=== PATIENT | male | born 1945 | race Caucasian/White ===

== ENCOUNTER 2016-09-02 12:42 | Inpatient (IN) | payer MEDICARE, SELFPAY ==
[~2016-09-02 12:42] MED LIST: ACETAMINOPHEN325 M2 PO; ACTOS15 MG PO; ADULT ASPIRIN81 MG PO; ALDACTONE25 M1 PO; ALDACTONE25 MG PO; ALLOPURINOL300 M1 PO; ALLOPURINOL300 MG PO; ALPHA LIPOIC A200 M1 PO; ALPHA-LIPOIC AC50 MG; ALPRAZOLAM ER0.5 M1 PO; AMLODIPINE BESYL5 MG PO; AMOXICILLIN500 M PO; APRESOLINE10 MG/TA1 PO; ASPIR-TRIN325 M2 PO; ASPIR-TRIN325 MG PO; ASPIRIN81 M1 PO; ATIVAN1 MG PO; AUGMENTIN 500-1 EAC2 PO; AUGMENTIN 875-1 EAC2 PO; AVALIDE 150-12.1 TAB PO; AVAPRO150 MG PO; AVAPRO75 MG PO; BACTRIM DS TABL1 TAB PO; CARVEDILOL25 M1 PO; CIPRO500 MG PO; CPAP; CYMBALTA60 M1 PO; DOXYCYCLINE HY100 M3 PO; DULERA 200 MCG/13 G1 INH; DULERA 200 MCG/13 GM IH; DYAZIDE 37.5/251 CAP; DYAZIDE 37.5/251 CAP PO; EC ASPIRIN325 MG PO; ELIQUIS2.5 M1 PO; ESOMEPRAZOLE MA40 MG PO; FERROUS SULFAT325 MG PO; FISH OIL 1,0001 CA1 PO; FLOMAX0.4 M1 PO; FLOMAX0.4 MG PO; FOSFOMYCIN PO; GLUCAGON; GLYBURIDE MICRON6 MG PO; GLYCRON6 MG PO; H PO; HUMALOG KW200 UNIT/1 SC; HUMALOG MIX 75/10 ML; HUMALOG100 U/ML SQ; HUMALOG100 UNIT/2 SC; HUMALOG100 UNITS/ SC; HUMULIN 70/30 V10 ML SQ; HUMULIN N100 U/ML; HYDRALAZINE HCL25 M1 PO; HYDRALAZINE HCL50 M1 PO; HYDROCHLOROTH12.5 M1 PO; HYDROCODON-ACE1 EA16 PO; IMDUR PO; IMDUR30 MG PO; ISORDIL20 MG PO; KEFLEX500 M4 PO; LASIX; LASIX40 MG PO; LASIX80 MG PO; LEVAQUIN250 M3 PO; LEVEMIR100 UNITS/ SC; LEVOTHROID50 MCG PO; LEVOTHROID75 MCG PO; LEVOTHYROXINE100 MC1 PO; LIPITOR10 M1 PO; LIPITOR10 MG PO; LOVENOX120 MG/0.1 SC; MAXZIDE 75/50 T1 TAB PO; METOLAZONE2.5 M1 PO; METOLAZONE5 MG PO; METOPROLOL SUC200 M1 PO; MIRALAX17 G2 PO; MOTION SICKNESS PO; MUCINEX1200 MG PO; MYSOLINE50 M1 PO; NADOLOL80 MG PO; NEXIUM20 M1 PO; NEXIUM40 M1 PO; NEXIUM40 MG PO; NITROGLYCERIN0.4 M1 PO; NITROSTAT0.4 MG/TAB SL; NORCO 5/325 TAB1 TAB PO; NORVASC5 MG PO; NOVOLIN 70100 UNITS/ SC; NOVOLIN N100 UNIT/2 SQ; NYSTATIN100000 UNI SSP; OXYCODONE/APAP PO; PERCOCET 5/3251 TAB PO; PLAVIX75 M1 PO; POTASSIUM CHLO10 MEQ PO; POTASSIUM CHLO20 ME3 PO; PROTONIX40 M2 PO; PROVENTIL HFA6.7 G1 INH; SKELAXIN800 M1 PO; SLOW-MAG64 MG PO; SPIRONOLACTONE25 M2 PO; STEROID INH; STOP HOME MEDICATION; SULFAMYLON60 GM TOP; TOPROL XL200 MG PO; TORSEMIDE100 M1 PO; VENTOLIN HFA18 G2 PO; XANAX0.25 MG PO; XANAX0.5 M1 PO; XANAX0.5 MG PO; ZAROXOLYN PO; ZITHROMAX250MG Z-PAK PO
[2016-09-02] MEDS ORDERED: PAIN & FEVER325 M1 PO (12:58)
[2016-09-02] MEDS ORDERED: ASPIRIN EC81 MG PO (13:08)
[2016-09-02] MEDS ORDERED: CYMBALTA30 M1 PO (13:12)
[2016-09-02] MEDS ORDERED: NEXIUM40 M1 PO (13:12)
[2016-09-02 13:17] LABS: BASO % 0.1 % (0-2); EOS % 0.1 % (0-7); HCT-HEMATOCRIT 35.7 % (36.0-53.5); HGB-HEMOGLOBIN 11.2 gm/dl (13.5-17.0); IMMATURE GRANULOCYTES ABSOLUTE 0.04 tho/cmm (0-0.03); IMMATURE GRANULOCYTES PERCENT 0.4 % (0-0.3); LYMPH % 6.5 % (20-45); LYMPH ABSOLUTE COUNT 0.7 tho/cmm (0.8-4.5); MCH (MEAN CORPUSCULAR HGB) 30.4 pg (28.0-32.0); MCHC MEAN CORPUSCULAR HGB CONC 31.4 % (32.0-36.0); MCV (MEAN CELL VOLUME) 96.7 fl (82.0-96.0); MEAN PLATELET VOLUME 10.7 cmc (9.4-12.4); MONO % 3.9 % (0-12); MONOCYTE ABSOLUTE COUNT 0.4 tho/cmm (0.0-1.2); NEUTROPHIL ABSOLUTE COUNT 9.4 tho/cmm (1.6-8.0); NEUTROPHIL-AUTOMATED 9.4 tho/cmm (1.6-8.0); PLATELET COUNT 158 tho/cmm (150-450); RED BLOOD COUNT 3.69 mil/cmm (4.40-5.70); RED CELL DISTRIBUTION WIDTH 16.4 % (12.4-16.4); WHITE BLOOD COUNT 10.6 tho/cmm (4.0-10.0)
[2016-09-02] MEDS ORDERED: HUMALOG100 UNIT/2 SC (13:19)
[2016-09-02] MEDS ORDERED: POTASSIUM CHLO20 ME3 PO (13:22)
[2016-09-02] MEDS ORDERED: AZITHROMYCIN250 M1 PO (13:25)
[2016-09-02] MEDS ORDERED: IPRAT-ALBUT 0.5-3 ML NEB ×2 (13:26→15:01)
[2016-09-02 13:29] LABS: ANION GAP 11 mmol/L (0-20); BLOOD UREA NITROGEN 71 mg/dl (6-24); CALCIUM 8.2 mg/dl (8.5-10.5); CARBON DIOXIDE-VENOUS 28 mmol/L (22-32); CHLORIDE 107 mmol/l (96-110); GLUCOSE 279 mg/dL (70-110); POTASSIUM 4.6 mmol/L (3.7-5.1); SODIUM 141 mmol/L (135-145); eGFR VALUE FOR BLACK 46 mL/Min
[2016-09-02] MEDS ORDERED: SILVADENE20 G1 TOP (14:57)
[2016-09-02] MEDS ORDERED: DEMADEX20 M1 PO (15:36)
[2016-09-02 22:08] LABS: ALB/GLOB RATIO 0.6 (0.8-2.0); ALBUMIN 2.4 g/dl (3.5-5.0); ALKALINE PHOSPHATASE 250 U/L (33-138); ALT/SGPT 41 U/L (12-78); ANION GAP 13 mmol/L (0-20); AST/SGOT 34 U/L (10-40); BILIRUBIN,TOTAL 0.2 mg/dl (0.0-1.5); BLOOD UREA NITROGEN 70 mg/dl (6-24); CALCIUM 8.1 mg/dl (8.5-10.5); CARBON DIOXIDE-VENOUS 27 mmol/L (22-32); CHLORIDE 107 mmol/l (96-110); CREATININE 1.73 mg/dl (0.60-1.30); GLUCOSE 274 mg/dL (70-110); MAGNESIUM 2.3 mg/dl (1.3-2.6); POTASSIUM 4.7 mmol/L (3.7-5.1); SODIUM 142 mmol/L (135-145); eGFR VALUE FOR BLACK 45 mL/Min
[2016-09-03 05:21] LABS: ANION GAP 11 mmol/L (0-20); BLOOD UREA NITROGEN 71 mg/dl (6-24); CALCIUM 8.3 mg/dl (8.5-10.5); CARBON DIOXIDE-VENOUS 28 mmol/L (22-32); CHLORIDE 110 mmol/l (96-110); CREATININE 1.62 mg/dl (0.60-1.30); GLUCOSE 266 mg/dL (70-110); POTASSIUM 4.3 mmol/L (3.7-5.1); SODIUM 145 mmol/L (135-145); eGFR VALUE FOR BLACK 48 mL/Min
[2016-09-03 15:38] LABS: MAGNESIUM 2.1 mg/dl (1.3-2.6); POTASSIUM 4.6 mmol/L (3.7-5.1)
[2016-09-03 15:43] LABS: IRON 39 ug/dl (49-181); IRON BINDING CAPACITY 191 ug/dl (250-450)
[2016-09-03 17:08] LABS: URINE TOTAL PROTEIN-RANDOM 25.4 mg/dl (<11.8)
[2016-09-03 17:57] LABS: URINE PRT/CR RATIO 0.66 Ratio (0.0-0.20)
[2016-09-04 06:45] LABS: BLOOD UREA NITROGEN 73 mg/dl (6-24); CALCIUM 8.5 mg/dl (8.5-10.5); CARBON DIOXIDE-VENOUS 28 mmol/L (22-32); CHLORIDE 108 mmol/l (96-110); CREATININE 1.62 mg/dl (0.60-1.30); PHOSPHOROUS 3.1 mg/dl (2.5-4.9); SODIUM 143 mmol/L (135-145); eGFR VALUE FOR BLACK 48 mL/Min
[2016-09-04 06:52] LABS: ANION GAP 11 mmol/L (0-20); GLUCOSE 88 mg/dL (70-110); POTASSIUM 3.5 mmol/L (3.7-5.1)
--- NOTE | 2016-09-04 15:17 | NUR ---
DR. CHAVIRA AT BEDSIDE PLACING CENTRAL LINE. PT HAS BIPAP ON D/T PT NOT ABLE TO LAY FLAT FOR VERY LONG. PT SIGNED CONSENT.
--- NOTE | 2016-09-04 15:18 | NUR ---
VITAL SIGNS STABLE.
[2016-09-05 04:49] LABS: ABG CO2 ARTERIAL 27 mmol/L (21-27); ARTERIAL BLD GAS O2 SATURATION 95 % (95-98); ARTERIAL BLOOD GAS PCO2 37 mmHg (32-45); ARTERIAL PO2 68 mmHg (70-100); BICARBONATE 26 mmol/L (21-28); BLOOD GAS BASE EXCESS 3 mM/L (-/+3); PH 7.46 Units (7.35-7.45)
[2016-09-05 06:30] LABS: ANION GAP 12 mmol/L (0-20); BLOOD UREA NITROGEN 76 mg/dl (6-24); CALCIUM 8.2 mg/dl (8.5-10.5); CARBON DIOXIDE-VENOUS 28 mmol/L (22-32); CHLORIDE 106 mmol/l (96-110); MAGNESIUM 2.4 mg/dl (1.3-2.6); PHOSPHOROUS 3.7 mg/dl (2.5-4.9); POTASSIUM 3.8 mmol/L (3.7-5.1); SODIUM 142 mmol/L (135-145)
[2016-09-05 07:05] LABS: GLUCOSE 232 mg/dL (70-110)
[2016-09-05 07:17] LABS: CREATININE 1.72 mg/dl (0.60-1.30); TSH-THYROID STIMULATING HORM. 0.61 uIU/ml (0.40-3.80); eGFR VALUE FOR BLACK 45 mL/Min
[2016-09-06 03:51] LABS: ANION GAP 12 mmol/L (0-20); BLOOD UREA NITROGEN 81 mg/dl (6-24); CALCIUM 8.2 mg/dl (8.5-10.5); CARBON DIOXIDE-VENOUS 28 mmol/L (22-32); CHLORIDE 105 mmol/l (96-110); CREATININE 1.87 mg/dl (0.60-1.30); GLUCOSE 317 mg/dL (70-110); MAGNESIUM 2.4 mg/dl (1.3-2.6); PHOSPHOROUS 3.4 mg/dl (2.5-4.9); POTASSIUM 3.9 mmol/L (3.7-5.1); SODIUM 141 mmol/L (135-145); eGFR VALUE FOR BLACK 41 mL/Min
[2016-09-07 06:14] LABS: ANION GAP 13 mmol/L (0-20); BLOOD UREA NITROGEN 97 mg/dl (6-24); CALCIUM 8.3 mg/dl (8.5-10.5); CARBON DIOXIDE-VENOUS 26 mmol/L (22-32); CHLORIDE 104 mmol/l (96-110); GLUCOSE 214 mg/dL (70-110); POTASSIUM 3.6 mmol/L (3.7-5.1); SODIUM 139 mmol/L (135-145)
[2016-09-07 06:16] LABS: CREATININE 2.09 mg/dl (0.60-1.30); MAGNESIUM 2.4 mg/dl (1.3-2.6); eGFR VALUE FOR BLACK 36 mL/Min
[2016-09-08 06:21] LABS: ANION GAP 12 mmol/L (0-20); BLOOD UREA NITROGEN 105 mg/dl (6-24); CALCIUM 8.3 mg/dl (8.5-10.5); CARBON DIOXIDE-VENOUS 29 mmol/L (22-32); CHLORIDE 104 mmol/l (96-110); CREATININE 2.17 mg/dl (0.60-1.30); MAGNESIUM 2.4 mg/dl (1.3-2.6); POTASSIUM 3.6 mmol/L (3.7-5.1); SODIUM 141 mmol/L (135-145); eGFR VALUE FOR BLACK 34 mL/Min
[2016-09-08 06:29] LABS: GLUCOSE 88 mg/dL (70-110)
[2016-09-08] MEDS ORDERED: TAMIFLU75 MG/CAP PO (14:54)
[2016-09-08] MEDS ORDERED: HYDRALAZINE HCL50 M1 PO (14:57)
[2016-09-08] MEDS ORDERED: DEMADEX20 M1 PO (15:00)
[2016-09-08] MEDS ORDERED: DELTASONE20 MG PO (15:01)
[2016-09-08] MEDS ORDERED: NOVOLOG FL100 UNIT/2 SC ×2 (15:07→15:08)
== END 2016-09-08 16:00 | DRG 291 ==
LOC: EDMED 12:42 → EMR2 16:42 → PCUB 19:25
PROVIDERS: Emergency Medicine; Internal Medicine Nephrology; Internal Medicine Pulmonary Disease; Nurse Practitioner Acute Care; ADMIT Internal Medicine
PROC: 02HV33Z Insertion of Infusion Device into Superior Vena Cava, Percutaneous Approach (ICD-10-PCS; principal; 2016-09-04)
PROC: B548ZZA Ultrasonography of Superior Vena Cava, Guidance (ICD-10-PCS; 2016-09-04)
DX: I13.0 Hypertensive heart and chronic kidney disease with heart failure and stage 1 through stage 4 chronic kidney disease, or unspecified chronic kidney disease (principal); I50.43 Acute on chronic combined systolic (congestive) and diastolic (congestive) heart failure; N17.9 Acute kidney failure, unspecified; E11.649 Type 2 diabetes mellitus with hypoglycemia without coma; I25.5 Ischemic cardiomyopathy; I48.0 Paroxysmal atrial fibrillation; I25.10 Atherosclerotic heart disease of native coronary artery without angina pectoris; E03.9 Hypothyroidism, unspecified; E78.5 Hyperlipidemia, unspecified; G47.33 Obstructive sleep apnea (adult) (pediatric); J11.1 Influenza due to unidentified influenza virus with other respiratory manifestations; N18.3 Chronic kidney disease, stage 3 (moderate); Z72.0 Tobacco use; Z95.0 Presence of cardiac pacemaker
CPT/HCPCS: C1751; J1250; J1756; J1815; J1940; J2930; J7512

== ENCOUNTER 2016-09-19 03:56 | Emergency (ER) | payer MEDICARE, SELFPAY ==
[~2016-09-19 03:56] MED LIST changes: +ASPIRIN EC81 MG PO; +AZITHROMYCIN250 M1 PO; +CYMBALTA30 M1 PO; +DELTASONE20 MG PO; +DEMADEX20 M1 PO; +IPRAT-ALBUT 0.5-3 ML NEB; +NOVOLOG FL100 UNIT/2 SC; +PAIN & FEVER325 M1 PO; +SILVADENE20 G1 TOP; +TAMIFLU75 MG/CAP PO
[2016-09-19 05:22] LABS: BASO % 0.1 % (0-2); EOS % 0.1 % (0-7); HCT-HEMATOCRIT 29.8 % (36.0-53.5); HGB-HEMOGLOBIN 9.4 gm/dl (13.5-17.0); IMMATURE GRANULOCYTES ABSOLUTE 0.26 tho/cmm (0-0.03); IMMATURE GRANULOCYTES PERCENT 1.7 % (0-0.3); LYMPH % 8.2 % (20-45); LYMPH ABSOLUTE COUNT 1.3 tho/cmm (0.8-4.5); MCH (MEAN CORPUSCULAR HGB) 30.4 pg (28.0-32.0); MCHC MEAN CORPUSCULAR HGB CONC 31.5 % (32.0-36.0); MCV (MEAN CELL VOLUME) 96.4 fl (82.0-96.0); MEAN PLATELET VOLUME 10.5 cmc (9.4-12.4); MONO % 5.9 % (0-12); MONOCYTE ABSOLUTE COUNT 0.9 tho/cmm (0.0-1.2); PLATELET COUNT 165 tho/cmm (150-450); RED BLOOD COUNT 3.09 mil/cmm (4.40-5.70); RED CELL DISTRIBUTION WIDTH 17.5 % (12.4-16.4); WHITE BLOOD COUNT 15.5 tho/cmm (4.0-10.0)
[2016-09-19 05:27] LABS: INR 1.2 INR (0.9-1.1); PROTHROMBIN TIME 14.5 SECONDS (9.0-13.6)
[2016-09-19 05:39] LABS: ANION GAP 11 mmol/L (0-20); BLOOD UREA NITROGEN 105 mg/dl (6-24); CALCIUM 8.4 mg/dl (8.5-10.5); CARBON DIOXIDE-VENOUS 30 mmol/L (22-32); CHLORIDE 105 mmol/l (96-110); CREATININE 2.06 mg/dl (0.60-1.30); GLUCOSE 197 mg/dL (70-110); POTASSIUM 4.8 mmol/L (3.7-5.1); SODIUM 141 mmol/L (135-145); eGFR VALUE FOR BLACK 36 mL/Min
== END 2016-09-19 07:50 ==
LOC: EDMED 03:56
PROVIDERS: Emergency Medicine
DX: K59.00 Constipation, unspecified (principal); I11.0 Hypertensive heart disease with heart failure; I25.10 Atherosclerotic heart disease of native coronary artery without angina pectoris; I48.91 Unspecified atrial fibrillation; E11.9 Type 2 diabetes mellitus without complications; E78.5 Hyperlipidemia, unspecified; J44.9 Chronic obstructive pulmonary disease, unspecified; E07.9 Disorder of thyroid, unspecified; E66.01 Morbid (severe) obesity due to excess calories; R79.89 Other specified abnormal findings of blood chemistry; Z95.0 Presence of cardiac pacemaker; Z95.1 Presence of aortocoronary bypass graft; Z90.89 Acquired absence of other organs; Z87.891 Personal history of nicotine dependence; Z79.51 Long term (current) use of inhaled steroids; Z79.4 Long term (current) use of insulin; Z79.890 Hormone replacement therapy; Z79.899 Other long term (current) drug therapy

== ENCOUNTER 2016-09-21 07:10 | Inpatient (IN) | payer MEDICARE ==
[2016-09-21 07:50] LABS: BASO % 0.1 % (0-2); EOS % 0.1 % (0-7); HCT-HEMATOCRIT 29.6 % (36.0-53.5); HGB-HEMOGLOBIN 9.5 gm/dl (13.5-17.0); IMMATURE GRANULOCYTES ABSOLUTE 0.08 tho/cmm (0-0.03); IMMATURE GRANULOCYTES PERCENT 0.4 % (0-0.3); LYMPH % 5.7 % (20-45); MCH (MEAN CORPUSCULAR HGB) 30.8 pg (28.0-32.0); MCHC MEAN CORPUSCULAR HGB CONC 32.1 % (32.0-36.0); MCV (MEAN CELL VOLUME) 96.1 fl (82.0-96.0); MEAN PLATELET VOLUME 10.4 cmc (9.4-12.4); MONOCYTE ABSOLUTE COUNT 0.7 tho/cmm (0.0-1.2); NEUTROPHILS % 89.7 % (40-80); PLATELET COUNT 137 tho/cmm (150-450); RED BLOOD COUNT 3.08 mil/cmm (4.40-5.70); RED CELL DISTRIBUTION WIDTH 18.1 % (12.4-16.4); WHITE BLOOD COUNT 17.8 tho/cmm (4.0-10.0)
[2016-09-21 08:20] LABS: INR 1.6 INR (0.9-1.1); PROTHROMBIN TIME 18.4 SECONDS (9.0-13.6)
[2016-09-21 08:32] LABS: ALB/GLOB RATIO 0.6 (0.8-2.0); ALBUMIN 2.2 g/dl (3.5-5.0); ALKALINE PHOSPHATASE 273 U/L (33-138); ALT/SGPT 99 U/L (12-78); ANION GAP 14 mmol/L (0-20); AST/SGOT 40 U/L (10-40); BILIRUBIN,TOTAL 0.8 mg/dl (0.0-1.5); BLOOD UREA NITROGEN 109 mg/dl (6-24); CALCIUM 8.4 mg/dl (8.5-10.5); CARBON DIOXIDE-VENOUS 27 mmol/L (22-32); CHLORIDE 103 mmol/l (96-110); CREATININE 2.47 mg/dl (0.60-1.30); GLUCOSE 120 mg/dL (70-110); POTASSIUM 5.1 mmol/L (3.7-5.1); SODIUM 139 mmol/L (135-145); eGFR VALUE FOR BLACK 29 mL/Min
[2016-09-21 11:05] LABS: ABG CO2 ARTERIAL 26 mmol/L (21-27); ARTERIAL BLD GAS O2 SATURATION 93 % (95-98); ARTERIAL BLOOD GAS PCO2 38 mmHg (32-45); ARTERIAL PO2 61 mmHg (70-100); BICARBONATE 25 mmol/L (21-28); BLOOD GAS BASE EXCESS 1 mM/L (-/+3); PH 7.43 Units (7.35-7.45)
[2016-09-21 11:46] LABS: PROCALCITONIN 0.42 ng/ml (0.05-0.09)
[2016-09-21 15:17] LABS: PROCALCITONIN 0.39 ng/ml (0.05-0.09)
[2016-09-22 06:09] LABS: EOS % 0.1 % (0-7); HCT-HEMATOCRIT 26.8 % (36.0-53.5); HGB-HEMOGLOBIN 8.5 gm/dl (13.5-17.0); IMMATURE GRANULOCYTES ABSOLUTE 0.05 tho/cmm (0-0.03); IMMATURE GRANULOCYTES PERCENT 0.4 % (0-0.3); LYMPH % 7.4 % (20-45); LYMPH ABSOLUTE COUNT 0.9 tho/cmm (0.8-4.5); MCH (MEAN CORPUSCULAR HGB) 30.2 pg (28.0-32.0); MCHC MEAN CORPUSCULAR HGB CONC 31.7 % (32.0-36.0); MCV (MEAN CELL VOLUME) 95.4 fl (82.0-96.0); MEAN PLATELET VOLUME 10.5 cmc (9.4-12.4); MONOCYTE ABSOLUTE COUNT 0.6 tho/cmm (0.0-1.2); NEUTROPHIL ABSOLUTE COUNT 11.1 tho/cmm (1.6-8.0); NEUTROPHIL-AUTOMATED 11.1 tho/cmm (1.6-8.0); NEUTROPHILS % 87.1 % (40-80); PLATELET COUNT 121 tho/cmm (150-450); RED BLOOD COUNT 2.81 mil/cmm (4.40-5.70); RED CELL DISTRIBUTION WIDTH 17.9 % (12.4-16.4); WHITE BLOOD COUNT 12.7 tho/cmm (4.0-10.0)
[2016-09-22 06:14] LABS: IRON 25 ug/dl (49-181); IRON BINDING CAPACITY 139 ug/dl (250-450)
[2016-09-22 06:39] LABS: PROCALCITONIN 0.42 ng/ml (0.05-0.09)
[2016-09-22 07:23] LABS: ALB/GLOB RATIO 0.5 (0.8-2.0); ALBUMIN 1.8 g/dl (3.5-5.0); ALKALINE PHOSPHATASE 237 U/L (33-138); ALT/SGPT 75 U/L (12-78); ANION GAP 15 mmol/L (0-20); AST/SGOT 23 U/L (10-40); BILIRUBIN,TOTAL 0.8 mg/dl (0.0-1.5); BLOOD UREA NITROGEN 105 mg/dl (6-24); CALCIUM 8.5 mg/dl (8.5-10.5); CARBON DIOXIDE-VENOUS 27 mmol/L (22-32); CHLORIDE 101 mmol/l (96-110); CREATININE 2.54 mg/dl (0.60-1.30); FERRITIN 719 ng/ml (22-388); GLUCOSE 99 mg/dL (70-110); MAGNESIUM 2.5 mg/dl (1.8-2.6); PHOSPHOROUS 4.2 mg/dl (2.5-4.9); SODIUM 139 mmol/L (135-145); eGFR VALUE FOR BLACK 28 mL/Min
[2016-09-23 05:38] LABS: BASO % 0.1 % (0-2); EOS % 0.2 % (0-7); HCT-HEMATOCRIT 26.9 % (36.0-53.5); HGB-HEMOGLOBIN 8.6 gm/dl (13.5-17.0); IMMATURE GRANULOCYTES ABSOLUTE 0.05 tho/cmm (0-0.03); IMMATURE GRANULOCYTES PERCENT 0.4 % (0-0.3); LYMPH % 6.4 % (20-45); LYMPH ABSOLUTE COUNT 0.8 tho/cmm (0.8-4.5); MCH (MEAN CORPUSCULAR HGB) 30.2 pg (28.0-32.0); MCV (MEAN CELL VOLUME) 94.4 fl (82.0-96.0); MEAN PLATELET VOLUME 10.6 cmc (9.4-12.4); MONOCYTE ABSOLUTE COUNT 0.5 tho/cmm (0.0-1.2); NEUTROPHIL ABSOLUTE COUNT 11.4 tho/cmm (1.6-8.0); NEUTROPHIL-AUTOMATED 11.4 tho/cmm (1.6-8.0); NEUTROPHILS % 88.9 % (40-80); PLATELET COUNT 141 tho/cmm (150-450); RED BLOOD COUNT 2.85 mil/cmm (4.40-5.70); RED CELL DISTRIBUTION WIDTH 17.6 % (12.4-16.4); WHITE BLOOD COUNT 12.9 tho/cmm (4.0-10.0)
[2016-09-23 06:02] LABS: BLOOD UREA NITROGEN 104 mg/dl (6-24); CALCIUM 8.4 mg/dl (8.5-10.5); CARBON DIOXIDE-VENOUS 29 mmol/L (22-32); CHLORIDE 100 mmol/l (96-110); CREATININE 2.68 mg/dl (0.60-1.30); SODIUM 141 mmol/L (135-145); eGFR VALUE FOR BLACK 26 mL/Min
[2016-09-23 06:03] LABS: ANION GAP 15 mmol/L (0-20); POTASSIUM 3.1 mmol/L (3.7-5.1)
[2016-09-23 06:04] LABS: GLUCOSE 62 mg/dL (70-110)
[2016-09-23 07:00] LABS: URINE BILIRUBIN NEGATIVE (NEG); URINE BLOOD NEGATIVE (NEG); URINE GLUCOSE (UA) NEGATIVE (NEG); URINE KETONE NEGATIVE (NEG); URINE LEUKOCYTE ESTERASE NEGATIVE (NEG); URINE NITRITE NEGATIVE (NEG); URINE PROTEIN NEGATIVE (NEG); URINE SPECIFIC GRAVITY 1.005 (1.003-1.030)
[2016-09-23 07:09] LABS: URINE APPEARANCE CLEAR; URINE COLOR PALE YELLOW
[2016-09-24 04:26] LABS: BASO % 0.1 % (0-2); EOS % 1.2 % (0-7); EOSINOPHIL ABSOLUTE COUNT 0.1 tho/cmm (0.0-0.7); HCT-HEMATOCRIT 26.9 % (36.0-53.5); HGB-HEMOGLOBIN 8.5 gm/dl (13.5-17.0); IMMATURE GRANULOCYTES ABSOLUTE 0.06 tho/cmm (0-0.03); IMMATURE GRANULOCYTES PERCENT 0.5 % (0-0.3); LYMPH % 7.7 % (20-45); LYMPH ABSOLUTE COUNT 0.9 tho/cmm (0.8-4.5); MCH (MEAN CORPUSCULAR HGB) 29.8 pg (28.0-32.0); MCHC MEAN CORPUSCULAR HGB CONC 31.6 % (32.0-36.0); MCV (MEAN CELL VOLUME) 94.4 fl (82.0-96.0); MEAN PLATELET VOLUME 9.2 cmc (9.4-12.4); MONO % 4.2 % (0-12); MONOCYTE ABSOLUTE COUNT 0.5 tho/cmm (0.0-1.2); NEUTROPHIL ABSOLUTE COUNT 9.7 tho/cmm (1.6-8.0); NEUTROPHIL-AUTOMATED 9.7 tho/cmm (1.6-8.0); NEUTROPHILS % 86.3 % (40-80); PLATELET COUNT 138 tho/cmm (150-450); RED BLOOD COUNT 2.85 mil/cmm (4.40-5.70); RED CELL DISTRIBUTION WIDTH 17.5 % (12.4-16.4); WHITE BLOOD COUNT 11.2 tho/cmm (4.0-10.0)
[2016-09-24 04:40] LABS: BLOOD UREA NITROGEN 100 mg/dl (6-24); CALCIUM 8.2 mg/dl (8.5-10.5); CARBON DIOXIDE-VENOUS 30 mmol/L (22-32); CHLORIDE 101 mmol/l (96-110); MAGNESIUM 2.2 mg/dl (1.8-2.6); SODIUM 144 mmol/L (135-145); eGFR VALUE FOR BLACK 25 mL/Min
[2016-09-24 04:46] LABS: ANION GAP 16 mmol/L (0-20); GLUCOSE 64 mg/dL (70-110); POTASSIUM 2.9 mmol/L (3.7-5.1)
[2016-09-24 05:38] LABS: PROCALCITONIN 0.24 ng/ml (0.05-0.09)
[2016-09-25 05:09] LABS: BASO % 0.1 % (0-2); EOS % 1.2 % (0-7); EOSINOPHIL ABSOLUTE COUNT 0.1 tho/cmm (0.0-0.7); HCT-HEMATOCRIT 27.5 % (36.0-53.5); HGB-HEMOGLOBIN 8.6 gm/dl (13.5-17.0); IMMATURE GRANULOCYTES ABSOLUTE 0.06 tho/cmm (0-0.03); IMMATURE GRANULOCYTES PERCENT 0.5 % (0-0.3); LYMPH % 7.3 % (20-45); LYMPH ABSOLUTE COUNT 0.8 tho/cmm (0.8-4.5); MCH (MEAN CORPUSCULAR HGB) 29.9 pg (28.0-32.0); MCHC MEAN CORPUSCULAR HGB CONC 31.3 % (32.0-36.0); MCV (MEAN CELL VOLUME) 95.5 fl (82.0-96.0); MEAN PLATELET VOLUME 10.2 cmc (9.4-12.4); MONO % 5.5 % (0-12); MONOCYTE ABSOLUTE COUNT 0.6 tho/cmm (0.0-1.2); NEUTROPHIL ABSOLUTE COUNT 9.6 tho/cmm (1.6-8.0); NEUTROPHIL-AUTOMATED 9.6 tho/cmm (1.6-8.0); NEUTROPHILS % 85.4 % (40-80); PLATELET COUNT 175 tho/cmm (150-450); RED BLOOD COUNT 2.88 mil/cmm (4.40-5.70); WHITE BLOOD COUNT 11.2 tho/cmm (4.0-10.0)
[2016-09-25 05:25] LABS: ALBUMIN 1.8 g/dl (3.5-5.0); ANION GAP 16 mmol/L (0-20); BLOOD UREA NITROGEN 99 mg/dl (6-24); CALCIUM 8.2 mg/dl (8.5-10.5); CARBON DIOXIDE-VENOUS 29 mmol/L (22-32); CHLORIDE 102 mmol/l (96-110); CREATININE 2.88 mg/dl (0.60-1.30); PHOSPHOROUS 4.3 mg/dl (2.5-4.9); POTASSIUM 3.3 mmol/L (3.7-5.1); SODIUM 144 mmol/L (135-145); eGFR VALUE FOR BLACK 24 mL/Min
[2016-09-25 05:26] LABS: GLUCOSE 193 mg/dL (70-110)
[2016-09-25] MEDS ORDERED: ATIVAN2 MG/1 ML PO/SL (11:01)
[2016-09-25] MEDS ORDERED: OXYCODONE20 MG/1 M3 PO/SL (11:02)
[2016-09-25] MEDS ORDERED: GAVILAX17 G2 PO (13:22)
[2016-09-25] MEDS ORDERED: CORTIZONE-1028 G2 (13:22)
[2016-09-25] MEDS ORDERED: SENNOSIDES-DOC1 EAC1 PO (13:23)
== END 2016-09-25 14:30 | disposition hospice, home (50) | DRG 291 ==
LOC: EDMED 07:10 → EMR2 10:06 → PCUA 11:40
PROVIDERS: Emergency Medicine; Internal Medicine; Internal Medicine Nephrology; Nurse Practitioner; Registered Nurse; ADMIT Hospitalist
PROC: 05H533Z Insertion of Infusion Device into Right Subclavian Vein, Percutaneous Approach (ICD-10-PCS; principal; 2016-09-22)
PROC: 5A09357 Assistance with Respiratory Ventilation, Less than 24 Consecutive Hours, Continuous Positive Airway Pressure (ICD-10-PCS; 2016-09-22)
DX: I13.0 Hypertensive heart and chronic kidney disease with heart failure and stage 1 through stage 4 chronic kidney disease, or unspecified chronic kidney disease (principal); I50.43 Acute on chronic combined systolic (congestive) and diastolic (congestive) heart failure; J96.00 Acute respiratory failure, unspecified whether with hypoxia or hypercapnia; N18.4 Chronic kidney disease, stage 4 (severe); E46 Unspecified protein-calorie malnutrition; E11.22 Type 2 diabetes mellitus with diabetic chronic kidney disease; I27.2 Other secondary pulmonary hypertension; I48.92 Unspecified atrial flutter; I25.5 Ischemic cardiomyopathy; I48.0 Paroxysmal atrial fibrillation; I24.8 Other forms of acute ischemic heart disease; Z68.42 Body mass index [BMI] 45.0-49.9, adult; L97.829 Non-pressure chronic ulcer of other part of left lower leg with unspecified severity; Z79.01 Long term (current) use of anticoagulants; D63.1 Anemia in chronic kidney disease; E87.6 Hypokalemia; G47.33 Obstructive sleep apnea (adult) (pediatric); J44.9 Chronic obstructive pulmonary disease, unspecified; Z51.5 Encounter for palliative care; Z79.4 Long term (current) use of insulin; E66.01 Morbid (severe) obesity due to excess calories; M19.90 Unspecified osteoarthritis, unspecified site; I25.10 Atherosclerotic heart disease of native coronary artery without angina pectoris; E03.9 Hypothyroidism, unspecified; K21.9 Gastro-esophageal reflux disease without esophagitis; E78.5 Hyperlipidemia, unspecified; F41.9 Anxiety disorder, unspecified; I83.008 Varicose veins of unspecified lower extremity with ulcer other part of lower leg; Z88.8 Allergy status to other drugs, medicaments and biological substances; I73.9 Peripheral vascular disease, unspecified; D72.829 Elevated white blood cell count, unspecified; Z79.52 Long term (current) use of systemic steroids; Z91.81 History of falling; Z95.0 Presence of cardiac pacemaker; Z79.82 Long term (current) use of aspirin; Z87.891 Personal history of nicotine dependence; J45.909 Unspecified asthma, uncomplicated; Z87.11 Personal history of peptic ulcer disease; D50.9 Iron deficiency anemia, unspecified; Z91.19 Patient's noncompliance with other medical treatment and regimen
CPT/HCPCS: C1751; J0885; J1756; J1815; J1940; J1956; J2060; J2543; J3370